=== PATIENT | female | born 1995 ===

== ENCOUNTER 2020-11-27 07:11 | Day surgery (SDC) | payer OTHER ==
[~2020-11-27] VITALS: Ht 170.2 cm; Wt 77.6 kg
== END 2020-11-27 16:45 | disposition home or self-care (01) ==
LOC: O/R 07:11 → CIR.AMB 07:11 → SURH 07:11 → EDSTATUS 12:45 → CIR.AMB 16:45 → O/R 16:45 → SURH 11-28 12:45
PROVIDERS: ATTEND Specialist
DX: N85.01 Benign endometrial hyperplasia (principal); N73.6 Female pelvic peritoneal adhesions (postinfective)